=== PATIENT | male | born 1990 | race Caucasian/White ===

== ENCOUNTER 2017-04-25 15:52 | Emergency (ER) | payer OTHER ==
[~2017-04-25] VITALS: Ht 175.3 cm; Wt 110.9 kg
[~2017-04-25 15:52] MED LIST: IPRA1AER2 INH
[2017-04-25 15:56] VITALS: TEMP 36.7; Ht 175.3 cm; Wt 110.9 kg
[2017-04-25] MEDS ORDERED: OXYCODONE HCL IR 5 MG TAB (IMMEDIATE RELEASE) PO STA (16:54)
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
[2017-04-25 17:25] VITALS: O2SAT 95
[2017-04-25 17:25] LABS: BASO % 0.2 %; BASO ABS # 0.02 K/uL (0-0.2); COMPLETE YES; EOS % 1.8 %; HEMATOCRIT 47.5 % (42-52); IG% 0.3 %; LYMPH % 20.8 %; LYMPH ABS # 2.19 K/uL (1.2-3.4); MEAN CELL VOLUME 90.3 fL (80-100); MEAN CORPUSCULAR HEMOGLOBIN 33.1 pg (25-34); MEAN CORPUSCULAR HGB CONC 36.6 g/dl (32-36); MEAN PLATELET VOLUME 9.4 fL (7.4-10.4); MONO % 7.2 %; NEUT % 69.7 %; PLATELET COUNT 203 K/uL (130-400); RED BLOOD COUNT 5.26 M/uL (4.7-6.1); WHITE BLOOD COUNT 10.53 K/uL (4.8-10.8)
[2017-04-25 17:43] LABS: ALT/SGPT 42 U/L (12-78); BLOOD UREA NITROGEN 7 mg/dl (7-18); BUN/CREATININE RATIO 8.6 (10-20); CALCIUM 9.2 mg/dl (8.5-10.1); CARBON DIOXIDE 24 mmol/L (21-32); CHLORIDE 107 mmol/L (98-107); CREATININE 0.81 mg/dl (0.60-1.40); GLUCOSE 86 mg/dl (70-99); POTASSIUM 3.9 mmol/L (3.5-5.1); SODIUM 139 mmol/L (136-145)
[2017-04-25 17:47] LABS: ALB/GLOB RATIO 1.1 (0.9-2); ALKALINE PHOSPHATASE 61 U/L (45-117); AST/SGOT 21 U/L (15-37)
--- NOTE | 2017-04-25 18:01 | DIAGNOSTIC IMAGING REPORT ---
RIGHT KNEE 2 VIEWS CLINICAL HISTORY: Right knee pain of several weeks' duration. FINDINGS: AP and crosstable lateral views of the right knee are compared to study dated 09/09/2014. The skeletal structures are well mineralized. No fracture is seen. The joint spaces are preserved. There is no joint effusion. The overlying soft tissues are within normal limits. IMPRESSION: Unremarkable radiographic assessment of the right knee. Electronically signed by: Chalino Peck M.D. 04/25/2017 5:59 PM Dictated Date/Time: 04/25/2017 5:58 PM
--- NOTE | 2017-04-25 18:10 | DIAGNOSTIC IMAGING REPORT ---
TWO VIEW CHEST CLINICAL HISTORY: Dyspnea.. FINDINGS: PA and lateral chest radiographs are compared to study dated 02/26/2015. Correlation is made with chest CT dated . The cardiomediastinal silhouette is unremarkable. Foci of linear scarring and nodularity are again seen throughout both lungs. This is unchanged from multiple prior studies. No airspace consolidation or pleural effusion is identified. There is no pneumothorax. The bony thorax appears intact. There is chronic widening at the right acromioclavicular joint. IMPRESSION: Chronic parenchymal changes as above. No acute cardiopulmonary abnormality is identified. Electronically signed by: Chalino Peck M.D. 04/25/2017 6:08 PM Dictated Date/Time: 04/25/2017 6:06 PM
--- NOTE | 2017-04-25 18:11 | DIAGNOSTIC IMAGING REPORT ---
LUMBAR SPINE 5 VIEWS CLINICAL HISTORY: Chronic low back pain. FINDINGS: 5 views of the lumbar spine are compared to study dated 08/25/2012. The skeletal structures are well mineralized. There is no radiographic evidence of fracture or malalignment. Vertebral body height and alignment are maintained. The transverse and spinous processes are intact. There is no evidence of spondylolysis. Mild disc space narrowing seen at L5-S1. The remaining intervertebral disc spaces are well-maintained. Small anterior osteophytes are seen in the lower thoracic region. The visualized bony pelvis appears intact. There is a nonobstructed abdominal bowel gas pattern. IMPRESSION: No acute bony abnormality is seen involving the lumbosacral spine. Electronically signed by: Chalino Peck M.D. 04/25/2017 6:09 PM Dictated Date/Time: 04/25/2017 6:08 PM
[2017-04-25 18:21] LABS: URINE APPEARANCE CLEAR (CLEAR); URINE BILIRUBIN NEG (NEG); URINE COLOR DK YELLOW; URINE NITRITE NEG (NEG); URINE SPECIFIC GRAVITY 1.023 (1.000-1.030); UROBILINOGEN NEG (NEG)
[2017-04-25 18:22] LABS: MANUAL MICROSCOPIC REQUIRED? NO; REVIEW REQ? NO
[2017-04-25] MEDS ORDERED: OXYC1TAB3 PO (18:50)
[2017-04-25 19:09] VITALS: BP 129/99; PULSE 76; O2SAT 94
== END 2017-04-25 19:07 | disposition home or self-care (01) ==
LOC: C.EDB 15:53 → C.EDC 19:07
DX: M94.0 Chondrocostal junction syndrome [Tietze] (principal); M54.5 Low back pain; G89.29 Other chronic pain; M25.561 Pain in right knee; J45.909 Unspecified asthma, uncomplicated; F32.9 Major depressive disorder, single episode, unspecified; Z83.79 Family history of other diseases of the digestive system; Z82.49 Family history of ischemic heart disease and other diseases of the circulatory system; Z83.6 Family history of other diseases of the respiratory system; F17.210 Nicotine dependence, cigarettes, uncomplicated

== ENCOUNTER 2017-05-26 21:49 | Emergency (ER) | payer OTHER ==
[~2017-05-26 21:49] MED LIST changes: +OXYC1TAB3 PO
[2017-05-26 22:00] VITALS: TEMP 36.8
[2017-05-26 23:45] VITALS: BP 133/85; PULSE 79; O2SAT 96
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
--- NOTE | 2017-05-27 06:41 | DIAGNOSTIC IMAGING REPORT ---
RIGHT KNEE 3 VIEWS CLINICAL HISTORY: Right knee pain Right pain COMPARISON: None. DISCUSSION: The bones and joint spaces appear intact. There is no evidence of fracture, dislocation or bony disease. There is no evidence for soft tissue swelling. IMPRESSION: Negative study. The above report was generated using voice recognition software. It may contain grammatical, syntax or spelling errors. Electronically signed by: Roberto Fonatna M.D. 05/27/2017 6:39 AM Dictated Date/Time: 05/27/2017 6:39 AM
== END 2017-05-26 23:46 | disposition home or self-care (01) ==
LOC: C.EDB 21:50 → C.EDC 23:46
DX: M25.561 Pain in right knee (principal); T24.001A Burn of unspecified degree of unspecified site of right lower limb, except ankle and foot, initial encounter; X19.XXXA Contact with other heat and hot substances, initial encounter; Y93.89 Activity, other specified; Y99.8 Other external cause status; J45.909 Unspecified asthma, uncomplicated; F17.200 Nicotine dependence, unspecified, uncomplicated; Z91.81 History of falling

== ENCOUNTER 2017-11-30 15:13 | Emergency (ER) | payer OTHER ==
[~2017-11-30] VITALS: Ht 172.7 cm; Wt 115.9 kg
[~2017-11-30 15:13] MED LIST changes: -OXYC1TAB3 PO
[2017-11-30 15:15] VITALS: Ht 172.7 cm; Wt 115.9 kg
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
[2017-11-30 15:52] LABS: BASO % 0.3 %; BASO ABS # 0.02 K/uL (0-0.2); EOS % 4.2 %; EOS ABS # 0.28 K/uL (0-0.5); HEMATOCRIT 46.4 % (42-52); HEMOGLOBIN 16.8 g/dL (14.0-18.0); IG# 0.02 K/uL (0.00-0.02); LYMPH % 30.5 %; LYMPH ABS # 2.05 K/uL (1.2-3.4); MEAN CELL VOLUME 93.4 fL (80-100); MEAN CORPUSCULAR HEMOGLOBIN 33.8 pg (25-34); MEAN CORPUSCULAR HGB CONC 36.2 g/dl (32-36); MEAN PLATELET VOLUME 9.8 fL (7.4-10.4); MONO % 7.6 %; MONO ABS # 0.51 K/uL (0.11-0.59); NEUT % 57.1 %; NEUT ABS # 3.85 K/uL (1.4-6.5); PLATELET COUNT 206 K/uL (130-400); RED CELL DISTRIBUTION WIDTH CV 12.4 % (11.5-14.5); RED CELL DISTRIBUTION WIDTH SD 41.6 fL (36.4-46.3); WHITE BLOOD COUNT 6.73 K/uL (4.8-10.8)
--- NOTE | 2017-11-30 16:15 | DIAGNOSTIC IMAGING REPORT ---
ABDOMEN AND PELVIS CT WITHOUT CONTRAST CT DOSE: 1282.44 mGy.cm HISTORY: Lower abdominal pain. Hematuria. TECHNIQUE: Multiaxial CT images of the abdomen and pelvis were performed without the use of intravenous and oral contrast according to the standard department stone protocol. A dose lowering technique was utilized adhering to the principles of ALARA. COMPARISON STUDY: None. FINDINGS: Bibasilar linear densities consistent with subsegmental atelectasis. There is a 2 cm bulla within the left lung base. No fractures within the visualized osseous structures. The unenhanced liver, gallbladder, spleen, adrenal glands, and pancreas are unremarkable. No retroperitoneal lymphadenopathy. The bladder is not well-distended. Questionable bladder wall thickening is likely due to underdistention.. No renal or ureteral stones. No hydronephrosis. Suboptimal evaluation for bowel pathology due to the lack of intravenous and oral contrast. However, there is no bowel wall thickening or obstruction. Normal appendix. A few colonic diverticula. IMPRESSION: 1. No renal stones. No hydronephrosis. 2. No bowel wall thickening or obstruction. 3. Small bladder wall thickening is likely due to underdistention. Recommend correlation with urinalysis. 4. Colonic diverticulosis. 5. Normal appendix. Electronically signed by: Zen Ortiz M.D. 11/30/2017 4:13 PM Dictated Date/Time: 11/30/2017 4:08 PM
[2017-11-30 16:21] LABS: ALBUMIN 4.1 gm/dl (3.4-5.0); CALCIUM 9.1 mg/dl (8.5-10.1); CREATININE 0.8 mg/dl (0.60-1.40); POTASSIUM 3.9 mmol/L (3.5-5.1); TOTAL PROTEIN 7.8 gm/dl (6.4-8.2)
[2017-11-30] MEDS ORDERED: ACETAMINOPHEN 325 MG TAB PO STA (16:28)
[2017-11-30] MEDS ORDERED: DICYCLOMINE HCL 10 MG CAP PO ONE (16:30)
[2017-11-30 17:35] VITALS: BP 130/77; PULSE 61; TEMP 36.8; O2SAT 96
== END 2017-11-30 17:43 | disposition home or self-care (01) ==
LOC: C.EDB 15:13
DX: R10.9 Unspecified abdominal pain (principal); R31.9 Hematuria, unspecified; R30.9 Painful micturition, unspecified; R11.2 Nausea with vomiting, unspecified; J45.909 Unspecified asthma, uncomplicated; F32.9 Major depressive disorder, single episode, unspecified; D86.9 Sarcoidosis, unspecified; F17.200 Nicotine dependence, unspecified, uncomplicated

== ENCOUNTER 2018-06-19 17:41 | Emergency (ER) | payer OTHER ==
[~2018-06-19] VITALS: Ht 175.3 cm; Wt 114.1 kg
[2018-06-19 17:55] VITALS: TEMP 36.8; Ht 175.3 cm; Wt 114.1 kg
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
[2018-06-19] MEDS ORDERED: KETOROLAC TROMETHAMINE 10 MG TAB PO STA (20:39)
[2018-06-19] MEDS ORDERED: FLEXERIL HOME PACK 10 MG VIAL PO ONE (20:45)
[2018-06-19] MEDS ORDERED: CYCL10TA6 PO (20:46)
[2018-06-19] MEDS ORDERED: KETO10TA PO (20:46)
[2018-06-19] MEDS ORDERED: EMPTY 8 DRAM VIAL ONE (20:50)
[2018-06-19 20:52] VITALS: BP 128/82; PULSE 65; O2SAT 93
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
== END 2018-06-19 20:58 | disposition home or self-care (01) ==
LOC: C.EDB 17:43 → C.EDD 20:58
DX: S43.101A Unspecified dislocation of right acromioclavicular joint, initial encounter (principal); M54.2 Cervicalgia; R51 Headache; V49.49XA Driver injured in collision with other motor vehicles in traffic accident, initial encounter; Y92.415 Exit ramp or entrance ramp of street or highway as the place of occurrence of the external cause